=== PATIENT | female | born 1980 | race Caucasian/White ===

== ENCOUNTER 2017-06-02 10:17 | Emergency (ER) | payer SELFPAY ==
[2017-06-02] MEDS: TETRACAINE 0.5% 4 ML OPH LEFT EYE (12:13)
[2017-06-02] MEDS: BENOXINATE HCL/FLUORESCEIN SOD 5 ML OPHTH LEFT EYE (12:14)
== END 2017-06-02 13:50 | disposition home or self-care (01) ==
LOC: FTE 10:17
DX: H10.9 Unspecified conjunctivitis (principal)
CPT/HCPCS: 87880; 99283

== ENCOUNTER 2017-06-07 08:42 | Emergency (ER) | payer SELFPAY ==
[2017-06-07] MEDS: TETRACAINE 0.5% 4 ML OPH LEFT EYE (09:43)
== END 2017-06-07 11:34 | disposition home or self-care (01) ==
LOC: FTE 08:42
DX: H10.32 Unspecified acute conjunctivitis, left eye (principal)
CPT/HCPCS: 76536; 99284-25